=== PATIENT | female | born 1940 | race Caucasian/White ===

== ENCOUNTER 2018-10-30 12:02 | Emergency (ER) | payer MEDICARE, OTHER ==
[~2018-10-30] VITALS: Ht 160 cm; Wt 63.6 kg
[2018-10-30 13:10] LABS: BASOPHILS # (AUTO) 0.1 X10'3 (0-0.2); BASOPHILS % (AUTO) 0.9 % (0-1); EOSINOPHILS # (AUTO) 0.1 X10'3 (0-0.9); EOSINOPHILS % (AUTO) 1.4 % (0-6); HEMATOCRIT 44.1 % (35.0-45.0); HEMOGLOBIN 15.3 g/dl (12.0-16.0); LYMPHOCYTES # (AUTO) 2.1 X10'3 (1.1-4.8); LYMPHOCYTES % (AUTO) 25.8 % (21-51); MEAN CORPUSCULAR HEMOGLOBIN 31.9 PG (27.0-31.0); MEAN CORPUSCULAR HGB CONC 34.6 g/dL (33.0-36.5); MEAN CORPUSCULAR VOLUME 92.2 FL (78-98); MEAN PLATELET VOLUME 7.3 FL (7.4-10.4); MONOCYTES # (AUTO) 0.9 X10'3 (0-0.9); MONOCYTES % (AUTO) 11.3 % (2-12); NEUTROPHILS # (AUTO) 4.9 X10'3 (1.8-7.7); NEUTROPHILS % (AUTO) 60.6 % (42-75); PLATELET COUNT 392 X10'3 (140-440); RED BLOOD COUNT 4.79 X10'6 (4.20-5.60); RED CELL DISTRIBUTION WIDTH 13.9 % (11.5-14.5); WHITE BLOOD COUNT 8.1 X10'3 (4.5-11.0)
[2018-10-30 13:24] LABS: PARTIAL THROMBOPLASTIN TIME 27 SECONDS (22-32)
[2018-10-30 13:25] LABS: ALANINE AMINOTRANSFERASE 24 U/L (12-78); ALBUMIN 4.6 G/DL (3.4-5.0); ALBUMIN/GLOBULIN RATIO 1.5 (1.1-1.5); ALKALINE PHOSPHATASE 47 IU/L (46-116); ANION GAP 8 (8-16); ASPARTATE AMINO TRANSFERASE 20 U/L (10-37); BILIRUBIN,TOTAL 0.9 MG/DL (0.1-1.0); BLOOD UREA NITROGEN 10 MG/DL (7-18); BUN/CREATININE RATIO 13.7 (6.6-38.0); CALCIUM 9.4 MG/DL (8.5-10.1); CHLORIDE 87 MMOL/L (99-107); CREATININE 0.73 MG/DL (0.40-0.90); GLUCOSE 93 MG/DL (70-104); SODIUM 126 MMOL/L (135-145); TOTAL CARBON DIOXIDE 31.1 MMOL/L (24-32); TOTAL PROTEIN 7.6 G/DL (6.4-8.2); eGFR 77 ML/MIN
[2018-10-30 13:26] LABS: POTASSIUM 2.4 MMOL/L (3.5-5.1)
[2018-10-30] MEDS ORDERED: potassium Cl 20 mEq SR tablet PO ONE (13:35)
[2018-10-30] MEDS: magnesium 2GM in 50ml NS 50 ML IV SCH ×2 (13:54→15:29)
[2018-10-30] MEDS: potassium Cl 10 mEq/100mL bag IV SCH ×2 (14:00→15:29)
[2018-10-30 14:34] LABS: MAGNESIUM 2.3 MG/DL (1.5-2.4)
[2018-10-30 15:11] LABS: COLOR,URINE STRAW (Yellow); GLUCOSE, URINE NEGATIVE (Neg); KETONES,URINE NEGATIVE (Neg); LEUKOCYTE ESTERASE ,URINE TRACE (Neg); NITRITES, URINE NEGATIVE (Neg); OCCULT BLOOD,URINE NEGATIVE (Neg); PH,URINE 5.5 (4.8-8.0); PROTEIN,URINE NEGATIVE (Neg); UROBILINOGEN,URINE 0.2 E.U/dL (0.2-1.0)
[2018-10-30 15:13] LABS: CLARITY,URINE SLIGHTLY CLOUDY (Clear); UA COLLECTION TYPE CLN CATCH MIDSTREAM
[2018-10-30 15:24] LABS: SQUAMOUS EPITHELIAL CELL,UR FEW /LPF (FEW)
[2018-10-30 15:25] LABS: BACTERIA,URINE 2+ /HPF (Neg); RBC,URINE 0-2 /HPF (0-2); WBC,URINE 0-4 /HPF (0-4)
--- NOTE | 2018-10-30 16:59 | NUR ---
LAB AT BEDSIDE TO DRAW K AT THIS TIME.
[2018-10-30] MEDS ORDERED: POTA20TA19 PO (18:07)
[2018-10-30 18:27] VITALS: BP 138/89
--- NOTE | 2018-11-06 08:53 | NUR ---
URINE CULTURE RESULTS RECEIVED CALLED PATIENT AND PRESCRIPTION CALLED IN TO [facility] [address] AT PATIENT REQUEST.
== END 2018-10-30 18:28 | disposition home or self-care (01) ==
LOC: ER 12:02
DX: I44.7 Left bundle-branch block, unspecified (principal); R42 Dizziness and giddiness; E87.1 Hypo-osmolality and hyponatremia; E87.6 Hypokalemia; Z79.899 Other long term (current) drug therapy
CPT/HCPCS: 36415; 71045; 80053; 81001; 83735; 84132; 84439; 84443; 84484; 85025; 85610; 85730; 87077; 87088; 87186; 93005; 96365; 96366; 96368; 99284; J3475; J3480

== ENCOUNTER 2018-12-19 13:14 | Emergency (ER) | payer MEDICARE, OTHER ==
[~2018-12-19] VITALS: Ht 160 cm; Wt 59.0 kg
[2018-12-19 13:28] VITALS: BP 143/85
== END 2018-12-19 15:31 | disposition home or self-care (01) ==
LOC: ER 13:15
DX: H92.03 Otalgia, bilateral (principal); R42 Dizziness and giddiness
CPT/HCPCS: 99282

== ENCOUNTER 2025-01-19 12:17 | Inpatient (IN) | payer MEDICARE, OTHER ==
[~2025-01-19] VITALS: Ht 160 cm; Wt 53.1 kg
[~2025-01-19 12:17] MED LIST: APIX2.5T PO; DORZ10DR10 EACHEYE; EMPA10TA PO; HYDR-3972 PO; LEVO125T8 PO; METO-384 PO; SACU1TAB PO; SPIR25TA5 PO
[2025-01-19 13:26] LABS: MEAN PLATELET VOLUME 8.0 FL (7.4-10.4); RED CELL DISTRIBUTION WIDTH 14.9 % (11.5-14.5)
[2025-01-19 13:36] LABS: CREATININE 2.82 MG/DL (0.40-0.90); TOTAL CARBON DIOXIDE 19.4 MMOL/L (24-32); eCRCL 12 ML/MIN; eGFR 16 ML/MIN
--- NOTE | 2025-01-19 13:54 | RADIOLOGY REPORT ---
CHEST RADIOGRAPH Indication: ams Technique: Single frontal view of the chest was obtained Comparison: DI CHEST,SINGLE VIEW on DOS: 03/28/23, FINDINGS: The cardiac silhouette is enlarged. The lungs demonstrate perihilar airspace opacities. The pulmonary vasculature is prominent. There is no pleural effusion. There is no pneumothorax. Aortic atherosclerotic disease. IMPRESSION: Cardiomegaly with pulmonary vascular congestion and bilateral perihilar airspace opacities.
[2025-01-19 14:02] LABS: BANDS% (MANUAL) 17.0 % (0-10); LYMPHOCYTES % (MANUAL) 4.0 % (21-51); METAMYLEOCYTES% (MANUAL) 1.0 % (0-0); MONOCYTES % (MANUAL) 8.0 % (2-12); NEUTROPHILS % (MANUAL) 70.0 % (42-75); PLATELET ESTIMATE DECREASED
[2025-01-19] MEDS: normal saline 500ml IV soln 500 ML IV ONE ×3 (14:18→16:09)
[2025-01-19] MEDS: CefTRIAXone/D5W-Rocephin 1gm 50 ML IV ONE (14:51)
[2025-01-19 15:45] LABS: LEUKOCYTE ESTERASE ,URINE LARGE (Neg); NITRITES, URINE POSITIVE (Neg); OCCULT BLOOD,URINE MODERATE (Neg)
[2025-01-19 15:50] LABS: UA COLLECTION TYPE STRAIGHT CATH
[2025-01-19 15:51] LABS: MUCUS STRANDS NONE SEEN /LPF (Neg); SQUAMOUS EPITHELIAL CELL,UR NONE SEEN /LPF (FEW); WBC CLUMPS,URINE MANY /HPF (NEGATIVE)
--- NOTE | 2025-01-19 17:15 | Physician Documentation ---
History of Present Illness ~ Chief Complaint: ALOC Stated Complaint: ALOC Time Seen by MD: 12:52 Primary Medical Doctor: BHARATHI Mode of Arrival: EMS HPI 84 year old female with history of CHF and atrial fibrillation presented for altered mental status with family at bedside. She has no specific complaints but is poorly oriented. She reportedly has a history of hyponatremia. Medication Reconciliation Allergies: Coded Allergies: No Known Allergies (Unverified , 07/13/22) Scheduled Apixaban (Eliquis), 1 TAB PO Q12H, (Reported) Dorzolamide HCl/Timolol Maleat (Dorzolamide-Timolol Eye Drops), 1 DROP EACHEYE BID, (Reported) Empagliflozin (Jardiance), 1 TAB PO DAILY, (Reported) Levothyroxine Sodium (Levothyroxine Sodium), 125 MCG PO DAILY@0700 Metoprolol Succinate (Metoprolol Succinate), 1 TAB PO DAILY, (Reported) Sacubitril/Valsartan (Entresto 24 mg-26 mg Tablet), 1 TAB PO BID, (Reported) Spironolactone (Spironolactone), 25 MG PO DAILY, (Reported) Scheduled PRN Hydrocodone Bit/Acetaminophen (Hydrocodon-Acetaminophn 10-325 tablet), 1 TAB PO Q12H PRN for pain, (Reported) Past Medical History Past Medical History: Atrial Fibrillation, Congestive Heart Failure Past Surgical History: noncontributory Patient History: CVA MOTHER, Onset:60 years & older FH: cardiovascular disease GRANDFATHER OR GRANDMOTHER, Onset:60 years & older Smoking Status: Never smoker Alcohol Use: Heavy Drug Use: none Lives In: Home Review of Systems All Other Systems at this time: Reviewed and Negative Physical Exam Vital Signs: RN Vital Signs have been reviewed: Yes, Temperature: 97.3, Heart Rate: 108, Respiratory Rate: 22, BP: 102/68, Pulse Oximetry: 98, Weight: 55.000 Oxygen Flow Rate: 0 Physical Exam Gen: no distress HEENT: PERRL, EOMI Pulm: no distress CTAB CV: irregularly irregular tachycardia Abd: soft, nontender, nondistended MSK: no deformity Skin: w/d/i Neuro: nonfocal, poorly oriented Psych: unremarkable Progress Results/Orders Results/Orders Orders - TAYLOR SCOTT MD Chest,Single View (01/19/25 13:16) Culture Blood (01/19/25 14:12) Cult Urine + [place] [address] (01/19/25 15:51) Completed Orders - TAYLOR SCOTT MD Cbc/Diff (01/19/25 12:50) BMP (01/19/25 12:50) Chest,Single View (01/19/25 13:16) Normal Saline 500ml Iv Soln (Sodium Chlo (01/19/25 13:35) Man Diff (01/19/25 13:06) Ceftriaxone/Q9h-Ocquojtr 1gm (Rocephin 1 (01/19/25 14:15) Lacticsepsis (01/19/25 14:12) Ua W/Microscopic, Cult If Ind (01/19/25 14:50) Normal Saline 500ml Iv Soln (Sodium Chlo (01/19/25 16:05) Normal Saline 500ml Iv Soln (Sodium Chlo (01/19/25 16:05) Lactic,2hr (01/19/25 16:11) LA (01/19/25 18:30) Vital Signs 01/19/25 01/19/25 01/19/25 01/19/25 12:18 13:33 13:36 13:45 Temp 97.8 Pulse 70 101 105 Resp 18 18 18 B/P (MAP) 134/103 81/50 (60) 168/122 (137) Pulse Ox 91 94 95 O2 Flow Rate 6.0 3.0 1.5 01/19/25 01/19/25 01/19/25 01/19/25 14:00 14:15 14:28 14:45 Pulse 109 100 101 106 Resp 20 20 18 18 B/P (MAP) 91/47 (62) 73/48 (56) 93/65 (74) 102/73 (83) Pulse Ox 94 95 89 94 O2 Flow Rate 1.5 1.5 1.5 1.5 01/19/25 01/19/25 01/19/25 01/19/25 15:00 15:15 15:45 16:00 Pulse 104 107 102 95 Resp 18 18 B/P (MAP) 86/58 (67) 96/69 (78) 99/65 (76) 76/47 (57) Pulse Ox 94 95 99 99 O2 Flow Rate 1.5 1.5 1.5 1.5 01/19/25 01/19/25 01/19/25 16:03 16:10 16:50 Temp 97.3 Pulse 98 120 108 Resp 20 18 22 B/P (MAP) 48/30 (36) 86/59 (68) 102/68 (79) Pulse Ox 98 97 98 O2 Flow Rate 0 0 0 Laboratory Tests Test 01/19/25 13:06 01/19/25 14:25 01/19/25 14:50 01/19/25 16:23 White Blood Count 15.7 H Red Blood Count 3.66 L Hemoglobin 12.1 Hematocrit 35.6 Mean Corpuscular Volume 97.1 Mean Corpuscular Hemoglobin 33.0 H Mean Corpuscular Hemoglobin Concent 34.0 Red Cell Distribution Width 14.9 H Platelet Count 108 L Mean Platelet Volume 8.0 Neutrophils (%) (Auto) 86.0 H Lymphocytes (%) (Auto) 4.1 L Monocytes (%) (Auto) 9.7 Eosinophils (%) (Auto) 0.1 Basophils (%) (Auto) 0.1 Neutrophils # (Auto) 13.5 H Lymphocytes # (Auto) 0.7 L Monocytes # (Auto) 1.5 H Eosinophils # (Auto) 0.0 Basophils # (Auto) 0.0 CBC Comment Differential Total Cells Counted 100 Neutrophils % (Manual) 70.0 Band Neutrophils % 17.0 H Lymphocytes % (Manual) 4.0 L Monocytes % (Manual) 8.0 Metamyelocytes % 1.0 H Toxic Vacuolation 1+ Platelet Estimate Decreased Red Blood Cell Morphology Perf Basophilic Stippling Macrocytosis Few Richey Cells Few Sodium Level 129 L Potassium Level 3.7 Chloride Level 96 L Carbon Dioxide Level 19.4 L Anion Gap 14 Blood Urea Nitrogen 27 H Creatinine 2.82 H Estimated GFR/1.73 m2 16 BUN/Creatinine Ratio 9.6 L Glucose Level 93 Calcium Level 7.9 L Albumin 2.7 L Chemistry Comments Lactic Acid Level 4.9 *H 2.7 H Urine Specimen Description Straight cath Urine Color Brown Urine Clarity Turbid Urine pH 6.5 Urine Specific [place] 1.015 Urine Protein >=300 H Urine Glucose (UA) Negative Urine Ketones Negative Urine Occult Blood Moderate H Urine Nitrite Positive H Urine Bilirubin Small Urine Urobilinogen 0.2 Urine Leukocyte Esterase Large H Urine RBC Tntc Urine WBC Tntc H Urine WBC Clumps Many Urine Squamous Epithelial Cells None seen Urine Bacteria 4+ Urine Mucus None seen Urine Culture Indicated Indicated Volume Urine Centrifuged 10 ml Urine Comment Microbiology Date/Time Source Procedure Growth Status 01/19/25 15:51 Urine Straight Cath Urine Culture - Preliminary Culture received. Resulted 01/19/25 15:35 Blood Arm Right Blood Culture - Preliminary NEGATIVE (LESS THAN 24 HOURS) Resulted Medical Decision Making Additional information obtaine: N/A Findings 84 year old female with new onset altered mental status. Appearing tachycardic and hypotensive during workup which also demonstrated elevated WBC. CXR interpreted by me demonstrated normal contours, no PNA, no PTX. EKG interpreted by me demonstrated irregularly irregular tachycardia, atrial flutter, no STEMI criteria. Suspected UTI, sepsis with elevated lactate. IVF and antibiotics provided which resulted in improved vital signs. Care transferred to hospitalist. This patient required 60 minutes of critical care time apart from separately billable procedures for frequent reassessment, management of blood pressure and fluid resuscitation. Differential Dx:Considerations: Include: other Additional Information Ddx = sepsis, uti, pyelonephritis, dementia, pneumonia, intraabdominal infection, metabolic encephalopathy Departure Disposition: ADMITTED INPATIENT Admitted to Inpatient Unit: to hospitalist Admission Level of Care: Med/Surg Impression: Primary Impression: Sepsis Additional Impressions: Metabolic encephalopathy UTI (urinary tract infection) Condition: Stable Referrals: NO PRIMARY CARE PROVIDER (PCP) Education Educated: Patient, Family Educated regarding: diagnosis, treatment, prognosis, need for follow up Signature Scribe Signature: . Attestation: . TAYLOR SCOTT MD Jan 19, 2025 17:15
--- NOTE | 2025-01-19 17:38 | HISTORY AND PHYSICAL ---
History & Physical Providers to CC ~ History of Present Illness Reason for Admit\Complaint: Altered mental status History of Present Illness 84 years old female with a history of AFib and CHF, presented to the ER for evaluation of altered mental status . Patient is unable to provide any information which is provided by her daughter Audrey who is at the bedside. Daughter states she lives close by and got called by nephew that patient was not doing well ,was not eating or drinking and mostly staying in bed. Patient is evaluated in the ER and noted to have multiple abnormalities including a white count of 15.7, BUN and creatinine 27 and 2.82 and a sodium of 129. UA is abnormal suggestive of UTI. Patient has been admitted for metabolic encephalopathy and a UTI. Patient has not had any recent fever chills nausea vomiting abdominal pain chest pain dysuria frequency urgency hematuria melena or bright red blood per rectum. No focal neurological abnormalities are reported. Allergies: Coded Allergies: No Known Allergies (Unverified , 07/13/22) Home Medications Home Medications Active Levothyroxine Sodium 125 Mcg Tablet 125 Mcg PO DAILY@0700 Reported Spironolactone 25 Mg Tablet 25 Mg PO DAILY Jardiance (Empagliflozin) 10 Mg Tablet 1 Tab PO DAILY Entresto 24 mg-26 mg Tablet (Sacubitril/Valsartan) 1 Each Tablet 1 Tab PO BID Eliquis (Apixaban) 2.5 Mg Tablet 1 Tab PO Q12H 30 Days Dorzolamide-Timolol Eye Drops (Dorzolamide HCl/Timolol Maleat) 10 Ml Drops 1 Drop EACHEYE BID Metoprolol Succinate 50 Mg Tab.sr.24h 1 Tab PO DAILY Hydrocodon-Acetaminophn 10-325 tablet (Acetaminophen/Hydrocodone Bitart) 10mg- 325mg Tablet 1 Tab PO Q12H PRN Past Medical History Past Medical History AFib, CHF Past Surgical History Surgical History Comment No recent surgeries. Family History Family History: Family history was reviewed; no changes noted. Past Social History Social History Comment Per daughter, patient does not smoke, drinks 2-3 beers a day, does not do any drugs. Health Maintenance Health Maintenance Patient is not current on her immunizations ROS ROS Unobtainable Exam Vitals: Vital Signs Date Time Temp Pulse Resp B/P (MAP) Pulse Ox O2 Delivery O2 Flow Rate FiO2 01/19/25 16:50 108 22 102/68 (79) 98 0 01/19/25 16:10 97.3 General: Confused in no acute distress HEENT: Normocephalic, atraumatic, extraocular movements are intact, sclerae anicteric. Neck: Supple, no JVD, trachea midline, no lymphadenopathy. Chest: Clear to auscultation, no wheezes crackles or rhonchi. Cardiovascular: Regular rate rhythm, no murmur gallop or rub. Abdomen: Soft nontender, no organomegaly. Extremities: No cyanosis clubbing or edema. Central Nervous System: Nonfocal. Moves all four extremities Musculoskeletal: No joint swelling or deformities noted. Skin: No rash or ulcers noted. Diagnostic Data Last Recorded Lab Results: 01/19/25 1306 01/19/25 1306 Additional Plan 84 years old female presented to the ER for evaluation of altered mental status. # metabolic encephalopathy: Bedrest, fall precautions #UTI: Start on IV Rocephin await final cultures # sepsis source urine: Supportive care and IV hydration. # JUAN CARLOS: Start on IV hydration monitor daily. Hold spironolactone #chronic systolic dysfunction: Patient had an echocardiogram in 2022 which showed an EF of 25-30%. We will recheck echocardiogram . Continue Entresto and metoprolol. Hold spironolactone due to dehydration # history of AFib: Continue metoprolol and Eliquis # hypothyroidism: Continue levothyroxine #code status: Daughter states that patient has wanted to be a DNR. Date of Service: Jan 19, 2025 Billing Provider: BATOOL GORE MD Common Visit Codes: [id number] INP/OBS CARE (HIGH) BATOOL GORE MD Jan 19, 2025 17:38
[2025-01-19] MEDS ORDERED: potassium Cl 20 mEq SR tablet PO PRN (17:40)
[2025-01-19] MEDS: normal saline 1000ml 1,000 ML IV SCH (17:40)
[2025-01-19] MEDS ORDERED: magnesium sulf-water 4G/100mL 100 ML IV PRN (17:40)
--- NOTE | 2025-01-19 17:51 | ELECTROCARDIOGRAPH REPORT ---
[facility] Test Date: 2025-01-19 Test Time: 12:26:02 Pat Name: VAHID HOWELL Department: EMERGENCY ROOM Room: ED 3 Gender: F Glove Turner: ALIE : 1940 Requested By: DEPARTMENT EMERGENCY Order Number: [id number] Reading MD: Dr. Mo Albarran Measurements Intervals [place] Rate: 104 P: 0 [place]: 0 QRS: 134 QRSD: 140 T: -40 QT: 383 QTc: 504 Interpretive Statements Age not entered, assumed to be 49 years old for purpose of ECG interpretation Atrial flutter with predominant 2:1 AV block Left bundle branch block Electronically Signed On 01-19-2025 18:10:[address] Mo Albarran Please click the below link to view image of tracing.
[2025-01-19] MEDS: PERFLUTREN PROTEIN-A MICROSPHR (Optison) 0.22 MG/ML 3ML VIAL IV ONE (17:57)
[2025-01-19] MEDS: docusate sod 100mg capsule PO SCH (20:00)
[2025-01-19] MEDS: K and/or MAG REPLACEMENT MC SCH (20:04)
[2025-01-19 21:00] VITALS: BP 89/60; PULSE 103; RESP 22; O2SAT 98
[2025-01-19 22:00] VITALS: BP 93/53; PULSE 116; RESP 30; O2SAT 96
[2025-01-19 22:19] VITALS: RESP 27; O2SAT 95
[2025-01-19 23:00] VITALS: BP 97/64; PULSE 101; RESP 24; O2SAT 100
[2025-01-19] MEDS: ondansetron/PF 4mg/2ml inj IV PRN (23:21)
[2025-01-19] MEDS: digoxin 250mcg/ml 2ml ampule IV ONE (23:28)
[2025-01-20] VITALS (16 sets, daily range): BP systolic 90–145; BP diastolic 47–83; PULSE 61–98; RESP 14–24; TEMP 97.8–98; O2SAT 87–100
[2025-01-20 00:26] LABS: MEAN PLATELET VOLUME 8.5 FL (7.4-10.4); RED CELL DISTRIBUTION WIDTH 15.1 % (11.5-14.5)
[2025-01-20 00:39] LABS: CREATININE 2.84 MG/DL (0.40-0.90); TOTAL CARBON DIOXIDE 21.9 MMOL/L (24-32); eCRCL 12 ML/MIN; eGFR 16 ML/MIN
[2025-01-20 00:53] LABS: BANDS% (MANUAL) 10.0 % (0-10); LYMPHOCYTES % (MANUAL) 4.0 % (21-51); METAMYLEOCYTES% (MANUAL) 1.0 % (0-0); MONOCYTES % (MANUAL) 6.0 % (2-12); NEUTROPHILS % (MANUAL) 79.0 % (42-75); PLATELET ESTIMATE DECREASED
[2025-01-20] MEDS: potassium Cl 40MEQ/1/2NS 520ml 520 ML IV PRN (02:07)
[2025-01-20] MEDS: dextrose 50%-water 50ml dispensing syringe IV ONE (04:47)
[2025-01-20] MEDS ORDERED: digoxin 250mcg/ml 2ml ampule IV ONE ×2 (05:00→11:00)
[2025-01-20] MEDS ORDERED: DEXTROSE 15 GM of carb/4 tabs (each vial/BOTTLE has 4 tablets) PO PRN (05:20)
[2025-01-20] MEDS ORDERED: glucagon, human recombinant 1mg kit SUBCUT PRN (05:20)
[2025-01-20] MEDS: digoxin 250mcg/ml 2ml ampule IV SCH (05:56)
[2025-01-20] MEDS: magnesium sulf-water 2g/50mL 50 ML IV PRN (08:46)
[2025-01-20] MEDS: CefTRIAXone/D5W-Rocephin 1gm 50 ML IV SCH (08:46)
[2025-01-20] MEDS: magnesium Cl slow-release 64mg tablet PO PRN (09:32)
[2025-01-20] MEDS: dextrose 50%-water 50ml dispensing syringe IV PRN (10:00)
[2025-01-20 10:38] LABS: C DIFF ANTIGEN NEGATIVE (NEGATIVE); C DIFF SPECIMEN=DIARRHEA? ACCEPTABLE
--- NOTE | 2025-01-20 11:13 | ELECTROCARDIOGRAPH REPORT ---
[facility] Test Date: 2025-01-19 Test Time: 17:55:31 Pat Name: VAHID HOWELL Department: EMERGENCY ROOM Room: ORTHO 4023 Gender: F Plastic Surgery Assistant: KINSGLEY : 1940 Requested By: DEPARTMENT EMERGENCY Order Number: [id number] Reading MD: Dr. Mo Albarran Measurements Intervals [place] Rate: 107 P: 0 [place]: 0 QRS: -47 QRSD: 144 T: 155 QT: 337 QTc: 450 Interpretive Statements Atrial flutter/fibrillation Nonspecific IVCD with LAD LVH with secondary repolarization abnormality Anterior infarct, old Electronically Signed On 01-20-2025 18:30:[address] Mo Albarran Please click the below link to view image of tracing.
[2025-01-20] MEDS ORDERED: SODI1TAB2 PO (13:16)
[2025-01-20] MEDS ORDERED: FURO-150 PO (13:16)
[2025-01-20] MEDS ORDERED: SYN0.088T PO (13:16)
[2025-01-20] MEDS ORDERED: POTA-207 PO (13:16)
[2025-01-20] MEDS: potassium Cl 20 mEq SR tablet PO PRN (15:57)
[2025-01-20 16:02] LABS: C DIFFICILE TOXINS A&B NEGATIVE (Neg)
--- NOTE | 2025-01-20 16:08 | PROGRESS NOTE ---
Daily Progress Note Providers to CC ~ Antibiotic Timeout Antibiotic Ordered?: Yes Subjective Patient is more awake. Daughter at bedside. Objective Vital Signs Date Time Temp Pulse Resp B/P (MAP) Pulse Ox O2 Delivery O2 Flow Rate FiO2 01/20/25 13:30 18 99 Nasal Cannula 4.0 01/20/25 13:20 97.9 61 126/59 (81) Result Diagram: 01/20/25 0010 01/20/25 0010 Awake cooperative in no acute distress HEENT normocephalic atraumatic extraocular movements are intact Neck supple, no JVD Chest: Clear to auscultation, no wheezes crackles rhonchi Heart: Regular rate rhythm, no murmur or gallop rub Abdomen is soft, tender, no organomegaly Extremities no cyanosis clubbing or edema Neuro exam is nonfocal. Other Results Medications reviewed Problem\Assessment\Plan 84 years old female with a history of AFib and CHF, presented to the ER for evaluation of altered mental status. # sepsis: Continue supportive care # UTI: Continue IV antibiotics # diarrhea: Patient has a rectal tube. Abdomen is quite tender. We will check CT abdomen and pelvis . Added Flagyl IV. # cardiomegaly: Check echocardiogram. Patient has a history of CHF. Lasix as needed # bilateral perihilar airspace opacities:? Pneumonia. Patient is on antibiotics as noted above. # code status: DNR. Date of Service: Jan 20, 2025 Billing Provider: BATOOL GORE MD Common Visit Codes: [id number] INP/OBS CARE(HIGH) BATOOL GORE MD Jan 20, 2025 16:08
[2025-01-20] MEDS: metroNIDAZOLE-Flagyl 500mg/NS 100 ML IV SCH (16:27)
--- NOTE | 2025-01-20 17:02 | RADIOLOGY REPORT ---
EXAM: CT CT ABDOMEN PELVIS HISTORY: abdominal pain Comparison Study: None Exam Date: 01/20/2025 04:30 PM Radiation Dose Information: CT Dose: CTDI volume is 23 mGy. Dose-length product is 1137 mGy*cm Technique: Multidetector CT of the abdomen and pelvis was performed. Imaging was performed without IV contrast. Axial, coronal and sagittal multiplanar reformats were obtained from the axial data set by the technologist. Findings: Motion degraded study. Lack of intravenous contrast compromises evaluation of perfusion and for isodense lesions. Lower chest: Trace bilateral pleural effusions. Liver: Unremarkable Biliary system: Unremarkable Spleen: Unremarkable Pancreas: Unremarkable. Adrenals: Unremarkable. Kidneys and ureters: Mild left collecting system dilatation most pronounced at the renal pelvis with underlying cortical atrophy. No obstructing calculus. Bowel: No obstruction. Rectal tube in place. Bladder: Unremarkable Reproductive organs: Myomatous uterus. Lymph nodes: Unremarkable. Peritoneum: Unremarkable Vessels: Patency not evaluated on this noncontrast study. Bones and soft tissue: No aggressive osseous lesion. Postsurgical changes in the lumbar spine. Moderate T12 compression fracture, which appears recent. IMPRESSION: Severely motion degraded limited study. Moderate T12 compression fracture, which appears recent. Mild left collecting system dilatation with underlying cortical atrophy. No obstructing calculus. 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 Recommend CT urogram to assess for other possible etiologies of obstruction including mass.
--- NOTE | 2025-01-20 17:39 | CARDIOLOGY REPORT ---
APPROVED REPORT EXAM: Comprehensive 2D, Doppler, and color-flow Echocardiogram. 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 148.9 cm/s AoV VTI 14.6 cm AO Peak GR. 8.9 mmHg AO Mean GR. 5 mmHg LVOT VTI 9.92 cm LVOT Peak Duran. 64.8 cm/s LUIS(VTI)/BSA 1.92 cm2/m2 LUIS (VTI) 1.92 cm2 AI P 1/2 Time 492 ms AV DI 0.68 % Mitral Valve MV E Velocity 99.3 cm/s MV Peak Gr. 5 mmHg MV PHT 68 ms MVA (PHT) 3.24 cm2 MV VMax 106.6 cm/s Tricuspid Valve TR P. Velocity 239 cm/s RAP ESTIMATE 5 mmHg TR Peak Gr. 23 mmHg RVSP 28 mmHg LEFT VENTRICLE Normal LV size moderately reduced function. Mild concentric hypertrophy. LVEF is 35-40%. RIGHT VENTRICLE Right ventricle is mildly dilated. The right ventricular systolic function is normal. RVSP is 28 mmHg. ATRIA Left atrium is moderately dilated. The right atrium size is normal. AORTIC VALVE Trileaflet AV appears mildly sclerotic without stenosis. Mild insufficiency. MITRAL VALVE Mild mitral annular calcification without stenosis. Mild regurgitation. TRICUSPID VALVE TV appears structurally normal with mild regurgitation. PULMONIC VALVE Pulmonic valve is not well visualized. GREAT VESSELS The aortic root is normal in size. The ascending aorta is normal in size. PERICARDIUM Normal pericardium. No effusion. Other Information Study Quality: Adequate Conclusion Normal LV size moderately reduced function. Mild concentric hypertrophy. LVEF is 35-40%. Right ventricle is mildly dilated. The right ventricular systolic function is normal. RVSP is 28 mmHg. Left atrium is moderately dilated. Trileaflet AV appears mildly sclerotic without stenosis. Mild insufficiency. Mild mitral annular calcification without stenosis. Mild regurgitation. TV appears structurally normal with mild regurgitation. Normal pericardium. No effusion.
[2025-01-21 06:00] VITALS: BP 152/62; PULSE 63; RESP 12; TEMP 97.6; O2SAT 97
[2025-01-21 06:18] LABS: MEAN PLATELET VOLUME 9.1 FL (7.4-10.4); RED CELL DISTRIBUTION WIDTH 15.4 % (11.5-14.5)
[2025-01-21 06:35] LABS: CREATININE 2.71 MG/DL (0.40-0.90); TOTAL CARBON DIOXIDE 16.2 MMOL/L (24-32); eCRCL 13 ML/MIN; eGFR 17 ML/MIN
[2025-01-21 10:00] VITALS: BP 144/84; PULSE 85; RESP 20; TEMP 98.6; O2SAT 100
--- NOTE | 2025-01-21 10:11 | PROGRESS NOTE ---
Daily Progress Note Providers to CC ~ Antibiotic Timeout Antibiotic Ordered?: Yes Subjective Daughter at bedside, reports patient is feeling better. Objective Vital Signs Date Time Temp Pulse Resp B/P (MAP) Pulse Ox O2 Delivery O2 Flow Rate FiO2 01/21/25 06:00 81 01/21/25 06:00 97.6 12 152/62 (92) 97 Nasal Cannula 3.5 Result Diagram: 01/21/2542201/21/25 042 Awake cooperative in no acute distress HEENT normocephalic atraumatic extraocular movements are intact Neck supple, no JVD Chest: Clear to auscultation, no wheezes crackles rhonchi Heart: Regular rate rhythm, no murmur or gallop rub Abdomen is soft, tender, no organomegaly Extremities no cyanosis clubbing or edema Neuro exam is nonfocal. Rectal tube noted with liquid green stool. Other Results Medications reviewed Problem\Assessment\Plan 84 years old female with a history of AFib and CHF, presented to the ER for evaluation of altered mental status. # Gram-negative sepsis: Continue supportive care # UTI: Continue IV antibiotics #Huber/CKD: Continue IV fluids. Monitor I's and o's. Request Nephrology consultation. 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 # diarrhea: Patient has a rectal tube. Continue Rocephin and Flagyl. # Systolic CHF with out exacerbation : Lasix is on hold due to Huber/CKD. Await Nephrology recommendations. # bilateral perihilar airspace opacities:? Pneumonia. Patient is on antibiotics as noted above. # hyponatremia: Monitor daily BMP. # code status: DNR. Date of Service: Jan 21, 2025 Billing Provider: BATOOL GORE MD Common Visit Codes: [id number] INP/OBS CARE(HIGH) BATOOL GORE MD Jan 21, 2025 10:11
[2025-01-21] MEDS: LidoCAINE 2% Topical Jelly 11mL syringe (UROJET) TOP ONE (12:25)
[2025-01-21] MEDS: normal saline 1000ml 1,000 ML IV SCH (14:33)
--- NOTE | 2025-01-21 14:56 | CONSULTATION REPORT ---
Consult Providers to CC ~ History of Present Illness Reason for Admit\Complaint: Altered Mentation History of Present Illness This is an 84-year-old female with a history of atrial fibrillation, chronic systolic heart failure (EF 25-30%), and multiple comorbidities, presenting with acute altered mental status in the context of poor oral intake, functional decline, and recent bedbound status. She was found to have metabolic encephalopathy, acute kidney injury (JUAN CARLOS) on chronic kidney disease, urinary tract infection (UTI), and evidence of volume overload with pulmonary congestion. Her labs reveal leukocytosis, worsening renal function, hyponatremia, metabolic acidosis, hypoalbuminemia, hypocalcemia, and hypomagnesemia. Imaging shows chronic cardiac and renal changes, with new left collecting system dilatation but no obstruction, and a significant post-void residual requiring Reyes catheterization. Her medication regimen includes agents with potential nephrotoxicity and risk for electrolyte disturbances. She is at high risk for delirium, decompensated heart failure, and further renal deterioration, compounded by her advanced age, frailty, and social isolation. Allergies: Coded Allergies: No Known Allergies (Unverified , 07/13/22) Home Medications Home Medications Active Reported SODIUM CHLORIDE tablet (Sodium Chloride) 1,000 Mg Tablet 1 Tab PO QID 30 Days K-Dur* (Potassium Chloride) 20 Meq Tab.prt.sr 1 Tab PO DAILY 30 Days Lasix* (Furosemide) 20 Mg Tablet 1 Tab PO BID Synthroid* (Levothyroxine Sodium) 88 Mcg Tablet 1 Tab PO DAILY 30 Days Spironolactone 25 Mg Tablet 25 Mg PO DAILY Entresto 24 mg-26 mg Tablet (Sacubitril/Valsartan) 1 Each Tablet 1 Tab PO BID Eliquis (Apixaban) 2.5 Mg Tablet 1 Tab PO Q12H 30 Days Dorzolamide-Timolol Eye Drops (Dorzolamide HCl/Timolol Maleat) 10 Ml Drops 1 Drop EACHEYE BID Metoprolol Succinate 50 Mg Tab.sr.24h 1 Tab PO DAILY Past Medical History Past Medical History Reviewed Past Surgical History Surgical History Comment Reviewed Family History Family History: CVA MOTHER, Onset:60 years & older FH: cardiovascular disease GRANDFATHER OR GRANDMOTHER, Onset:60 years & older ROS ROS Unable to assess Exam Vitals: Vital Signs Date Time Temp Pulse Resp B/P (MAP) Pulse Ox O2 Delivery O2 Flow Rate FiO2 01/21/25 06:00 81 01/21/25 06:00 97.6 12 152/62 (92) 97 Nasal Cannula 3.5 Alert, confused RRR w/o murmur Decreased BS bases, some faint crackles +BS, NT 1+ edema Diagnostic Data Last Recorded Lab Results: 01/21/25 0423 01/21/25 0423 Diagnostic Data: I & O 01/21/25 07:00 Intake Total 820 ml Balance 820 ml Intake Oral 820 ml # Voids 1 Problems: (1) Electrolyte abnormality Assessment & Plan: Electrolyte Abnormalities Assessment: Hyponatremia, hypocalcemia, hypomagnesemia, metabolic acidosis. Plan: Correct electrolytes as indicated: replace magnesium and calcium, monitor sodium correction rate. Monitor for symptoms of severe electrolyte disturbances (seizures, arrhythmias). Address underlying causes (renal dysfunction, medications, poor intake). 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 Plan: Consult nutrition for assessment and recommendations. Encourage oral intake as tolerated; consider supplements. Monitor for refeeding syndrome if nutritional status improves rapidly. Functional Decline / Fall Risk / Social Isolation Assessment: Bedbound, acute functional decline, lives alone, high risk for falls and further deconditioning. Plan: Physical and occupational therapy consults for mobility and safety assessment. Social work/case management for discharge planning and possible increased support at home or consideration of higher level of care. Fall precautions in hospital. (3) Metabolic encephalopathy Status: Acute Assessment & Plan: Metabolic Encephalopathy / Delirium Assessment: Acute mental status change likely multifactorial: infection (UTI), metabolic derangements (uremia, hyponatremia, hypovolemia), medication effects, and possible alcohol withdrawal. Plan: Treat underlying causes: continue antibiotics for UTI, correct metabolic/electrolyte abnormalities. Monitor mental status closely; implement delirium precautions (reorienting, minimize restraints, optimize sleep/wake cycle). Review and minimize ENTERPRISE INTEGRATION ARCHITECT-active medications (hydrocodone/acetaminophen). Assess for alcohol withdrawal; consider CIWA protocol if indicated. (4) UTI (urinary tract infection) Status: Acute Assessment & Plan: Urinary Tract Infection Assessment: UTI with leukocytosis, likely contributing to delirium and JUAN CARLOS. Plan: Continue/adjust empiric antibiotics per culture and sensitivity. Monitor for sepsis; trend WBC, vitals, and clinical status. Reyes catheter in place for retention; reassess need daily and remove as soon as feasible. (5) JUAN CARLOS (acute kidney injury) Assessment & Plan: Acute Kidney Injury on Chronic Kidney Disease Assessment: JUAN CARLOS (creatinine 2.82 ? 2.71, BUN rising) on baseline CKD, likely multifactorial: pre-renal (dehydration, poor intake), infection, possible nephrotoxic medications, and urinary retention. Plan: Optimize volume status: cautious diuresis today Furosemide 40 mg IV. Hold/adjust nephrotoxic medications (spironolactone, Jardiance, and possibly Entresto if hypotensive or hyperkalemic). Monitor renal function and electrolytes daily. Address urinary retention; monitor Reyes output and consider urology consult for collecting system dilatation. Urinary Retention / Reyes Catheter Assessment: Significant post-void residual (567 mL), Reyes catheter placed, left collecting system dilatation without obstruction. Plan: Monitor Reyes output and urine characteristics. Reassess need for catheter daily; remove as soon as possible to reduce infection risk. Consider urology consult for persistent retention or abnormal imaging findings. CHELO POLANCO III DO Jan 21, 2025 14:56
[2025-01-21 15:00] VITALS: BP 176/89; PULSE 81; RESP 16; O2SAT 98
[2025-01-21 16:17] VITALS: BP 141/43; PULSE 83
[2025-01-21] MEDS ORDERED: hydrocortisone 1% cream 28gm TP PRN (17:20)
[2025-01-21 18:31] VITALS: BP 141/43; PULSE 83; RESP 18; TEMP 97.8; O2SAT 98
[2025-01-21 23:07] VITALS: BP 154/81; PULSE 85; RESP 12; TEMP 97.8; O2SAT 98
[2025-01-22] VITALS (11 sets, daily range): BP systolic 112–135; BP diastolic 60–89; PULSE 79–168; RESP 15–21; TEMP 96.4–97.9; O2SAT 94–100
[2025-01-22 06:08] LABS: RED CELL DISTRIBUTION WIDTH 15.4 % (11.5-14.5)
[2025-01-22 06:10] LABS: MEAN PLATELET VOLUME 9.2 FL (7.4-10.4)
[2025-01-22 06:11] LABS: CREATININE 2.51 MG/DL (0.40-0.90); TOTAL CARBON DIOXIDE 18.4 MMOL/L (24-32); eCRCL 14 ML/MIN; eGFR 18 ML/MIN
[2025-01-22] MEDS: dextrose 50%-water 50ml dispensing syringe IV PRN (08:07)
[2025-01-22] MEDS: potassium Cl 20 mEq SR tablet PO SCH (08:08)
[2025-01-22] MEDS: metoprolol succinate 25mg (24-HOUR) SR. Tablet PO SCH (08:08)
[2025-01-22] MEDS: levoTHYROXINE 88mcg tablet PO SCH (08:09)
[2025-01-22 09:36] LABS: BANDS% (MANUAL) 2.0 % (0-10); EOSINOPHILS % (MANUAL) 2.0 % (0-6); LYMPHOCYTES % (MANUAL) 5.0 % (21-51); MONOCYTES % (MANUAL) 5.0 % (2-12); NEUTROPHILS % (MANUAL) 86.0 % (42-75); PLATELET ESTIMATE DECREASED
--- NOTE | 2025-01-22 12:03 | CONSULTATION REPORT ---
History of Present Illness Providers to CC CC: NUBIA ANTONIO MD ~ Reason for Admit\Admit Dx: Cardiology consultation Refering MD: BHARATHI History of Present Illness Patient presented secondary to altered level of consciousness. She was at home and not acting herself. Family brought her in. They stated she was not waking up, acting appropriately and had severe weakness. Her symptoms have improved. Was found to have urinary tract infection with E coli bacteremia on one of her two blood cultures. She has known atrial fibrillation. She had not received her home metoprolol for several days and did go into RVR requiring transfer to the progressive care unit. Patient has no complaints of shortness for breath currently. Allergies: Coded Allergies: No Known Allergies (Unverified , 07/13/22) Home Medications Home Medications Active Reported SODIUM CHLORIDE tablet (Sodium Chloride) 1,000 Mg Tablet 1 Tab PO QID 30 Days K-Dur* (Potassium Chloride) 20 Meq Tab.prt.sr 1 Tab PO DAILY 30 Days Lasix* (Furosemide) 20 Mg Tablet 1 Tab PO BID Synthroid* (Levothyroxine Sodium) 88 Mcg Tablet 1 Tab PO DAILY 30 Days Spironolactone 25 Mg Tablet 25 Mg PO DAILY Entresto 24 mg-26 mg Tablet (Sacubitril/Valsartan) 1 Each Tablet 1 Tab PO BID Eliquis (Apixaban) 2.5 Mg Tablet 1 Tab PO Q12H 30 Days Dorzolamide-Timolol Eye Drops (Dorzolamide HCl/Timolol Maleat) 10 Ml Drops 1 Drop EACHEYE BID Metoprolol Succinate 50 Mg Tab.sr.24h 1 Tab PO DAILY Past Medical History Medical History Comment HFrEF Hypertension Atrial fibrillation Hyperlipidemia Glaucoma ? Baseline dementia Past Family History Family History: CVA MOTHER, Onset:60 years & older FH: cardiovascular disease GRANDFATHER OR GRANDMOTHER, Onset:60 years & older Past Social History Social History Comment Provider patient drinks beer daily. Nonsmoker. Physical Exam Last Vital Signs Recorded: RN Vital Signs have been reviewed: Yes, Temperature: 97.2, Source: Oral, Heart Rate: 84, Respiratory Rate: 15, BP: 117/78, Pulse Oximetry: 100, Weight: 53.100 Physical Exam General: Awake, alert, oriented. No apparent distress Respiratory: Lungs are clear to auscultation bilaterally. No respiratory distress. Chest: Normal shape and size. No accessory muscle use. Cardiovascular: Irregularly irregular. Rate controlled. S1-S2. No murmur, gallop, rub. Gastrointestinal: She has a rectal tube with diarrhea. Abdominal tenderness. Extremities: No lower extremity edema, cyanosis or clubbing. Neurologic: Alert and oriented x4. Nonfocal Psychiatric: Normal mood and affect. Skin: Normal color. Warm and dry. Review of Systems ROS Review of systems negative except documented in HPI Results Echocardiogram Echocardiogram Conclusion Normal LV size moderately reduced function. Mild concentric hypertrophy. LVEF is 35-40%. Right ventricle is mildly dilated. The right ventricular systolic function is normal. RVSP is 28 mmHg. Left atrium is moderately dilated. Trileaflet AV appears mildly sclerotic without stenosis. Mild insufficiency. Mild mitral annular calcification without stenosis. Mild regurgitation. TV appears structurally normal with mild regurgitation. Normal pericardium. No effusion. Dictated by:STARR ANSARI MD Dictation date and time:01/20/251738 Electronically Signed by: STARR ANSARI MD Date and Time: 01/20/251738 Diagram Lab Result Diagram: 01/22/2553001/22/25530 Assessment/Plan Additional Plan Patient presents secondary to altered level of consciousness/mental status. She had episode of atrial fibrillation with rapid ventricular response requiring transfer from the ortho neuro floor of the progressive care unit. The following is her problem list: Atrial fibrillation with rapid ventricular response Now rate controlled --continue home metoprolol --continue Eliquis as prescribed Heart failure with reduced ejection fraction Likely chronic. Appears well compensated. Given acute kidney injury I will stop spironolactone. We will hold Lasix. --recommend monitoring Acute kidney injury --hold diuretics as noted above --nephrology following E coli UTI --management per hospitalist Hypokalemia --replacement per protocol Hypothyroidism TSH 20.43 --on Synthroid. Unclear if she has been taking her medications as prescribed Case discussed with Dr. Zhang Antonio who is in agreement with this plan. Supervising MD Supervising Physician: DL Haro NP Jan 22, 2025 12:03
[2025-01-22] MEDS: Ensure Enlive - 237ML PO SCH (13:17)
[2025-01-22] MEDS ORDERED: levoTHYROXINE 88mcg tablet PO SCH (15:15)
--- NOTE | 2025-01-22 15:16 | PROGRESS NOTE ---
Daily Progress Note Providers to CC ~ Antibiotic Timeout Antibiotic Ordered?: Yes Subjective No new complaints, Objective Vital Signs Date Time Temp Pulse Resp B/P (MAP) Pulse Ox O2 Delivery O2 Flow Rate FiO2 01/22/25 10:50 97.2 84 15 117/78 (91) 100 Nasal Cannula 2.0 Result Diagram: 01/22/25 0531 01/22/25 0531 Awake cooperative in no acute distress HEENT normocephalic atraumatic extraocular movements are intact Neck supple, no JVD Chest: Clear to auscultation, no wheezes crackles rhonchi Heart: Regular rate rhythm, no murmur or gallop rub Abdomen is soft, tender, no organomegaly Extremities no cyanosis clubbing or edema Neuro exam is nonfocal. Rectal tube noted with liquid green stool. Other Results Medications reviewed Problem\Assessment\Plan 84 years old female with a history of AFib and CHF, presented to the ER for evaluation of altered mental status. # E coli sepsis: Continue supportive care # UTI: Continue IV antibiotics . Urine cultures positive for E coli. #Huber/CKD: Continue IV fluids. Monitor I's and o's. Request Nephrology consultation. 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 # diarrhea: Patient has a rectal tube. Continue Rocephin and Flagyl. # Systolic CHF with out exacerbation : Lasix is on hold due to Huber/CKD. Await Nephrology recommendations. # bilateral perihilar airspace opacities:? Pneumonia. Patient is on antibiotics as noted above. # hyponatremia: Monitor daily BMP. # hypothyroidism: TSH is 20.43. Patient is on levothyroxine 88 mcg daily which will be increased to 100 mcg. Continue monitor. # code status: DNR. Date of Service: Jan 22, 2025 Billing Provider: BATOOL GORE MD Common Visit Codes: [id number] INP/OBS CARE(HIGH) BATOOL GORE MD Jan 22, 2025 15:16
[2025-01-22] MEDS: DICLOFENAC SODIUM 1% gel 1 50GM tube TP SCH (17:09)
--- NOTE | 2025-01-22 17:39 | PROGRESS NOTE ---
Progress Note Dictate Providers to CC ~ Progress Note: This is an 84-year-old female with a history of atrial fibrillation, chronic systolic heart failure (EF 25-30%), and multiple comorbidities, presenting with acute altered mental status in the context of poor oral intake, functional decline, and recent bedbound status. She was found to have metabolic encephalopathy, acute kidney injury (JUAN CARLOS) on chronic kidney disease, urinary tract infection (UTI), and evidence of volume overload with pulmonary congestion. Her labs reveal leukocytosis, worsening renal function, hyponatremia, metabolic acidosis, hypoalbuminemia, hypocalcemia, and hypomagnesemia. Imaging shows chronic cardiac and renal changes, with new left collecting system dilatation but no obstruction, and a significant post-void residual requiring Reyes catheterization. Her medication regimen includes agents with potential nephrotoxicity and risk for electrolyte disturbances. She is at high risk for delirium, decompensated heart failure, and further renal deterioration, compounded by her advanced age, frailty, and social isolation. Antibiotic Ordered?: N/A Subjective Subjective Family present at bedside, she appears less confused today, improving renal function Objective Vitals Vital Signs Date Time Temp Pulse Resp B/P (MAP) Pulse Ox O2 Delivery O2 Flow Rate FiO2 01/22/25 15:00 97.2 81 19 112/65 (81) 96 Room Air 01/22/25 10:50 2.0 Lab Results: 01/22/25 0531 01/22/25 0531 Problem\Assessment\Plan Problems/Diagnosis: (1) Electrolyte abnormality Assessment & Plan: Electrolyte Abnormalities Assessment: Hyponatremia, hypocalcemia, hypomagnesemia, metabolic acidosis. Plan: Correct electrolytes as indicated: replace magnesium and calcium, monitor sodium correction rate. Monitor for symptoms of severe electrolyte disturbances (seizures, arrhythmias). Address underlying causes (renal dysfunction, medications, poor intake). 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 Plan: Consult nutrition for assessment and recommendations. Encourage oral intake as tolerated; consider supplements. Monitor for refeeding syndrome if nutritional status improves rapidly. Functional Decline / Fall Risk / Social Isolation Assessment: Bedbound, acute functional decline, lives alone, high risk for falls and further deconditioning. Plan: Physical and occupational therapy consults for mobility and safety assessment. Social work/case management for discharge planning and possible increased support at home or consideration of higher level of care. Fall precautions in hospital. (3) Metabolic encephalopathy Assessment & Plan: Metabolic Encephalopathy / Delirium improved Assessment: Acute mental status change likely multifactorial: infection (UTI), metabolic derangements (uremia, hyponatremia, hypovolemia), medication effects, and possible alcohol withdrawal. Plan: Treat underlying causes: continue antibiotics for UTI, correct metabolic/electrolyte abnormalities. Monitor mental status closely; implement delirium precautions (reorienting, minimize restraints, optimize sleep/wake cycle). Review and minimize SALES ENGINEER ACCOUNT MANAGER-active medications (hydrocodone/acetaminophen). Assess for alcohol withdrawal; consider CIWA protocol if indicated. (4) UTI (urinary tract infection) Assessment & Plan: Urinary Tract Infection Assessment: UTI with leukocytosis, likely contributing to delirium and JUAN CARLOS. Plan: Continue/adjust empiric antibiotics per culture and sensitivity. Monitor for sepsis; trend WBC, vitals, and clinical status. Reyes catheter in place for retention; reassess need daily and remove as soon as feasible. (5) JUAN CARLOS (acute kidney injury) Assessment & Plan: Acute Kidney Injury on Chronic Kidney Disease improving Assessment: JUAN CARLOS (creatinine 2.82 now 2.51, BUN rising) on baseline CKD, likely multifactorial: pre-renal (dehydration, poor intake), infection, possible nephrotoxic medications, and urinary retention. Plan: Optimize volume status: cautious diuresis today Furosemide 40 mg IV. Hold/adjust nephrotoxic medications (spironolactone, Jardiance, and possibly Entresto if hypotensive or hyperkalemic). Monitor renal function and electrolytes daily. Address urinary retention; monitor Reyes output and consider urology consult for collecting system dilatation. Urinary Retention / Reyes Catheter Assessment: Significant post-void residual (567 mL), Reyes catheter placed, left collecting system dilatation without obstruction. Plan: Monitor Reyes output and urine characteristics. Reassess need for catheter daily; remove as soon as possible to reduce infection risk. Consider urology consult for persistent retention or abnormal imaging findings. CHELO POLANCO III DO Jan 22, 2025 17:39
[2025-01-22] MEDS: dorzolamide/timolol (Cosopt) ophthalmic drops 10ml bottle EACHEYE SCH (20:19)
[2025-01-22] MEDS: sacubitril/valsartan 24mg-26mg tablet PO SCH (20:19)
[2025-01-23] VITALS (9 sets, daily range): BP systolic 98–131; BP diastolic 67–83; PULSE 68–73; RESP 14–19; TEMP 97.1–97.4; O2SAT 94–100
[2025-01-23 07:07] LABS: MEAN PLATELET VOLUME 9.6 FL (7.4-10.4); RED CELL DISTRIBUTION WIDTH 15.8 % (11.5-14.5)
[2025-01-23 07:48] LABS: CREATININE 2.19 MG/DL (0.40-0.90); TOTAL CARBON DIOXIDE 19.1 MMOL/L (24-32); eCRCL 16 ML/MIN; eGFR 21 ML/MIN
[2025-01-23] MEDS ORDERED: non-formulary drug (Metoprolol Succinate 1 TAB) PO SCH (08:00)
[2025-01-23] MEDS ORDERED: potassium Cl 40MEQ/1/2NS 520ml 520 ML IV PRN (09:25)
[2025-01-23] MEDS ORDERED: magnesium sulf-water 2g/50mL 50 ML IV PRN (09:25)
[2025-01-23] MEDS ORDERED: potassium Cl 20 mEq SR tablet PO PRN ×2 (09:25)
[2025-01-23] MEDS ORDERED: magnesium sulf-water 4G/100mL 100 ML IV PRN (09:25)
[2025-01-23] MEDS: magnesium Cl slow-release 64mg tablet PO PRN (11:00)
--- NOTE | 2025-01-23 13:20 | PROGRESS NOTE ---
Daily Progress Note Providers to CC ~ Antibiotic Timeout Antibiotic Ordered?: Yes Subjective No new complaints. Patient is resting comfortably. Daughter at bedside, reports that patient was earlier sitting on a bedside chair. Objective Vital Signs Date Time Temp Pulse Resp B/P (MAP) Pulse Ox O2 Delivery O2 Flow Rate FiO2 01/23/25 10:41 97.3 72 17 124/83 (97) 97 Room Air 01/22/25 10:50 2.0 Result Diagram: 01/23/2562401/23/25 06 Awake cooperative in no acute distress HEENT normocephalic atraumatic extraocular movements are intact Neck supple, no JVD Chest: Clear to auscultation, no wheezes crackles rhonchi Heart: Regular rate rhythm, no murmur or gallop rub Abdomen is soft,, no organomegaly , appears tender however patient's states that she does not have pain but pressure Extremities no cyanosis clubbing or edema Neuro exam is nonfocal. Rectal tube noted with liquid green stool. Other Results Medications reviewed Problem\Assessment\Plan 84 years old female with a history of AFib and CHF, presented to the ER for evaluation of altered mental status. # E coli sepsis: Continue supportive care # UTI: Continue IV antibiotics . Urine cultures positive for E coli. #Huber/CKD: Continue IV fluids. Monitor I's and o's. Request Nephrology consultation. 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 # diarrhea: Continue Rocephin and Flagyl.DC rectal tube # Systolic CHF with out exacerbation : Lasix is on hold due to Huber/CKD. Await Nephrology recommendations. # bilateral perihilar airspace opacities:? Pneumonia. Patient is on antibiotics as noted above. # hyponatremia: Monitor daily BMP. # hypothyroidism: TSH is 20.43. Patient is on levothyroxine 88 mcg daily which will be increased to 100 mcg. Continue monitor. # code status: DNR. Date of Service: Jan 23, 2025 Billing Provider: BATOOL GORE MD Common Visit Codes: [id number] INP/OBS CARE(HIGH) BATOOL GORE MD Jan 23, 2025 13:20
[2025-01-23 14:23] LABS: LEUKOCYTE ESTERASE ,URINE SMALL (Neg); NITRITES, URINE NEGATIVE (Neg); OCCULT BLOOD,URINE MODERATE (Neg)
[2025-01-23 14:45] LABS: UA COLLECTION TYPE FOLEY CATH
[2025-01-23 14:47] LABS: SQUAMOUS EPITHELIAL CELL,UR FEW /LPF (FEW)
[2025-01-23 14:49] LABS: HYALINE CASTS 0-3 /LPF (NEGATIVE)
[2025-01-23 15:22] LABS: CREATININE,URINE RANDOM 51.0 MG/DL; UA UREA RANDOM 555.0 MG/DL
--- NOTE | 2025-01-23 18:05 | PROGRESS NOTE ---
Progress Note Dictate Providers to CC ~ Progress Note: This is an 84-year-old female with a history of atrial fibrillation, chronic systolic heart failure (EF 25-30%), and multiple comorbidities, presenting with acute altered mental status in the context of poor oral intake, functional decline, and recent bedbound status. She was found to have metabolic encephalopathy, acute kidney injury (JUAN CARLOS) on chronic kidney disease, urinary tract infection (UTI), and evidence of volume overload with pulmonary congestion. Her labs reveal leukocytosis, worsening renal function, hyponatremia, metabolic acidosis, hypoalbuminemia, hypocalcemia, and hypomagnesemia. Imaging shows chronic cardiac and renal changes, with new left collecting system dilatation but no obstruction, and a significant post-void residual requiring Reyes catheterization. Her medication regimen includes agents with potential nephrotoxicity and risk for electrolyte disturbances. She is at high risk for delirium, decompensated heart failure, and further renal deterioration, compounded by her advanced age, frailty, and social isolation. Antibiotic Ordered?: N/A Subjective Subjective No specific complaints today Objective Vitals Vital Signs Date Time Temp Pulse Resp B/P (MAP) Pulse Ox O2 Delivery O2 Flow Rate FiO2 01/23/25 15:00 97.2 72 16 131/83 (99) 94 Room Air 01/22/25 10:50 2.0 Appears comfortable RRR w/o murmur CTAB +BS, NT No edema Lab Results: 01/23/25 0625 01/23/25 0625 Other Results I & O 01/23/25 07:00 Intake Total 2350 ml Output Total 3170 ml Balance -820 ml Intake Oral 1150 ml IV Total 600 ml Other 600 ml Output Urine Total 2650 ml Stool Total 520 ml Problem\Assessment\Plan Additional Plan (1) Electrolyte abnormality Assessment & Plan: Electrolyte Abnormalities Assessment: Hyponatremia, hypocalcemia, hypomagnesemia, metabolic acidosis. Plan: Correct electrolytes as indicated: replace magnesium and calcium, monitor sodium correction rate. Monitor for symptoms of severe electrolyte disturbances (seizures, arrhythmias). Address underlying causes (renal dysfunction, medications, poor intake). 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 Plan: Consult nutrition for assessment and recommendations. Encourage oral intake as tolerated; consider supplements. Monitor for refeeding syndrome if nutritional status improves rapidly. Functional Decline / Fall Risk / Social Isolation Assessment: Bedbound, acute functional decline, lives alone, high risk for falls and further deconditioning. Plan: Physical and occupational therapy consults for mobility and safety assessment. Social work/case management for discharge planning and possible increased support at home or consideration of higher level of care. Fall precautions in hospital. (3) Metabolic encephalopathy Assessment & Plan: Metabolic Encephalopathy / Delirium improved Assessment: Acute mental status change likely multifactorial: infection (UTI), metabolic derangements (uremia, hyponatremia, hypovolemia), medication effects, and possible alcohol withdrawal. Plan: Treat underlying causes: continue antibiotics for UTI, correct metabolic/electrolyte abnormalities. Monitor mental status closely; implement delirium precautions (reorienting, minimize restraints, optimize sleep/wake cycle). Review and minimize PETROGRAPHER-active medications (hydrocodone/acetaminophen). Assess for alcohol withdrawal; consider CIWA protocol if indicated. (4) UTI (urinary tract infection) Assessment & Plan: Urinary Tract Infection Assessment: UTI with leukocytosis, likely contributing to delirium and JUAN CARLOS. Plan: Continue/adjust empiric antibiotics per culture and sensitivity. Monitor for sepsis; trend WBC, vitals, and clinical status. Reyes catheter in place for retention; reassess need daily and remove as soon as feasible. (5) JUAN CARLOS (acute kidney injury) Assessment & Plan: Acute Kidney Injury on Chronic Kidney Disease improving Assessment: JUAN CARLOS (creatinine 2.82 now 2.51, BUN rising) on baseline CKD, likely multifactorial: pre-renal (dehydration, poor intake), infection, possible nephrotoxic medications, and urinary retention. Plan: Optimize volume status: cautious diuresis today Furosemide 40 mg IV. Hold/adjust nephrotoxic medications (spironolactone, Jardiance, and possibly Entresto if hypotensive or hyperkalemic). Monitor renal function and electrolytes daily. Address urinary retention; monitor Reyes output and consider urology consult for collecting system dilatation. Urinary Retention / Reyes Catheter Assessment: Significant post-void residual (567 mL), Reyes catheter placed, left collecting system dilatation without obstruction. Plan: Monitor Reyes output and urine characteristics. Reassess need for catheter daily; remove as soon as possible to reduce infection risk. Consider urology consult for persistent retention or abnormal imaging findings. CHELO POLANCO III DO Jan 23, 2025 18:05
[2025-01-23] MEDS: K and/or MAG REPLACEMENT MC SCH (20:00)
[2025-01-24] VITALS (9 sets, daily range): BP systolic 92–131; BP diastolic 65–94; PULSE 70–97; RESP 16–20; TEMP 97.1–97.8; O2SAT 96–99
[2025-01-24 08:18] LABS: MEAN PLATELET VOLUME 9.4 FL (7.4-10.4); RED CELL DISTRIBUTION WIDTH 16.0 % (11.5-14.5)
[2025-01-24 08:29] LABS: CREATININE 1.86 MG/DL (0.40-0.90); TOTAL CARBON DIOXIDE 21.2 MMOL/L (24-32); eCRCL 18 ML/MIN; eGFR 26 ML/MIN
--- NOTE | 2025-01-24 14:04 | DISCHARGE SUMMARY ---
Discharge Summary Providers to CC ~ Discharge Summary Admission Diagnosis: Metabolic encephalopathy, UTI Hospital Course DATE OF ADMISSION: DATE OF DISCHARGE: Discharge Diagnosis\Comment: EColi sepsis Complications: None Condition on DC: Stable for transfer *Problems/Diagnosis: (1) Electrolyte abnormality (2) Frailty syndrome in geriatric patient (3) Metabolic encephalopathy Status: Acute (4) UTI (urinary tract infection) Status: Acute (5) JUAN CARLOS (acute kidney injury) BATOOL GORE MD Jan 24, 2025 14:04
--- NOTE | 2025-01-24 16:59 | PROGRESS NOTE ---
Daily Progress Note Providers to CC ~ Antibiotic Timeout Antibiotic Ordered?: Yes Subjective Patient is aware awake lethargic. RN reports low blood sugars. Daughter at bedside reports patient does not eat much. Objective Vital Signs Date Time Temp Pulse Resp B/P (MAP) Pulse Ox O2 Delivery O2 Flow Rate FiO2 01/24/25 08:11 70 01/24/25 08:00 16 99 Room Air 01/24/25 02:00 97.8 131/94 (106) 01/22/25 10:50 2.0 Result Diagram: 01/24/25 0801 01/24/25 08 Lethargic weak frail looking female, opens eyes to her name. HEENT normocephalic atraumatic extraocular movements are intact Neck supple, no JVD Chest: Clear to auscultation, no wheezes crackles rhonchi Heart: Regular rate rhythm, no murmur or gallop rub Abdomen is soft, nontender, no organomegaly Extremities no cyanosis clubbing or edema Neuro exam is nonfocal. Rectal tube noted previously noted has been removed. Other Results Medications reviewed Problem\Assessment\Plan 84 years old female with a history of AFib and CHF, presented to the ER for evaluation of altered mental status. # E coli sepsis: Continue supportive care # UTI: Continue IV antibiotics . Urine cultures positive for E coli. # hypoglycemia: Due to poor p.o. intake. Discussed with daughter regarding various forms of nutrition. Daughter wants to watch patient N/C how much she takes at night. We will request ST evaluation. #Huber/CKD: Continue IV fluids. Monitor I's and o's. Request Nephrology consultation. 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 # diarrhea: Continue Rocephin and Flagyl.DC rectal tube # Systolic CHF with out exacerbation : Lasix is on hold due to Huber/CKD. Await Nephrology recommendations. # bilateral perihilar airspace opacities:? Pneumonia. Patient is on antibiotics as noted above. # hyponatremia: Monitor daily BMP. # hypothyroidism: Continue Synthroid. # code status: DNR. Date of Service: Jan 24, 2025 Billing Provider: BATOOL GORE MD Common Visit Codes: [id number] INP/OBS CARE(HIGH) BATOOL GORE MD Jan 24, 2025 16:59
[2025-01-24] MEDS: DEXTROSE 15 GM of carb/4 tabs (each vial/BOTTLE has 4 tablets) PO PRN (18:01)
[2025-01-24] MEDS: nystatin 500,000 unit/5ML UD oral suspension PO SCH (20:46)
[2025-01-25 02:00] VITALS: BP 122/71; PULSE 68; RESP 16; TEMP 97.1; O2SAT 93
[2025-01-25 06:00] VITALS: BP 120/81; PULSE 73; RESP 21; TEMP 97.3; O2SAT 97
[2025-01-25] MEDS: levoTHYROXINE 100mcg tablet PO SCH (07:12)
[2025-01-25 07:23] LABS: MEAN PLATELET VOLUME 9.2 FL (7.4-10.4); RED CELL DISTRIBUTION WIDTH 15.8 % (11.5-14.5)
[2025-01-25 07:57] LABS: CREATININE 1.58 MG/DL (0.40-0.90); TOTAL CARBON DIOXIDE 17.7 MMOL/L (24-32); eCRCL 22 ML/MIN; eGFR 31 ML/MIN
[2025-01-25 08:00] VITALS: RESP 16; O2SAT 97
[2025-01-25] MEDS ORDERED: POTASSIUM CHLORIDE 20 MEQ/15 ML oral solution PO PRN (09:02)
[2025-01-25] MEDS: POTASSIUM CHLORIDE 20 MEQ/15 ML oral solution PO SCH (10:01)
[2025-01-25 10:05] LABS: ABG BASE EXCESS -6.6 mmol/L (-2.0-3.0); ABG HCO3 15.9 mmol/L (21.0-28.0); ABG OXYGEN SATURATION 98.2 % (94.0-98.0); ABG PCO2 (T) 24.8 mmHg (32.0-45.0); ABG PH (T) 7.426 (7.350-7.450); ABG PO2 (T) 96.5 mmHg (83.0-108.0); ALLEN'S TEST POSITIVE; FCOHb 1.5 % (0.5-1.5); FHHb 1.8 % (0.0-5.0); FIO2 21.0 mmHg/%; FMetHb 0.3 % (0.0-1.5); FO2Hb 96.4 % (94.0-98.0); MODE ROOM AIR; PATIENT TEMPERATURE 37.0; TOTAL HEMOGLOBIN 13.6 G/dl (12.0-16.0)
[2025-01-25 11:00] VITALS: BP 118/84; PULSE 60; RESP 16; TEMP 97.1; O2SAT 97
[2025-01-25 15:00] VITALS: BP 123/87; PULSE 70; RESP 28; TEMP 97.4; O2SAT 91
--- NOTE | 2025-01-25 18:00 | RADIOLOGY REPORT ---
CHEST RADIOGRAPH Indication: COUGH Technique: Single frontal view of the chest was obtained COMPARISON: DI CHEST,SINGLE VIEW on DOS: 01/19/25, DI CHEST,SINGLE VIEW on DOS: 03/28/23, CHEST,SINGLE VIEW on DOS: 07/13/22, CHEST,SINGLE VIEW on DOS: 06/06/22, CHEST,SINGLE VIEW on DOS: 10/30/18 FINDINGS: Lines and Tubes: None Lungs: Clear Pleura: No effusion. No pneumothorax. Cardiomediastinal contours: Heart size is normal. Calcifications in the aortic arch. Bones: Unremarkable IMPRESSION: No acute disease.
--- NOTE | 2025-01-25 22:47 | PROGRESS NOTE ---
Progress Note Dictate Providers to CC ~ Progress Note: This is an 84-year-old female with a history of atrial fibrillation, chronic systolic heart failure (EF 25-30%), and multiple comorbidities, presenting with acute altered mental status in the context of poor oral intake, functional decline, and recent bedbound status. She was found to have metabolic encephalopathy, acute kidney injury (JUAN CARLOS) on chronic kidney disease, urinary tract infection (UTI), and evidence of volume overload with pulmonary congestion. Her labs reveal leukocytosis, worsening renal function, hyponatremia, metabolic acidosis, hypoalbuminemia, hypocalcemia, and hypomagnesemia. Imaging shows chronic cardiac and renal changes, with new left collecting system dilatation but no obstruction, and a significant post-void residual requiring Reyes catheterization. Her medication regimen includes agents with potential nephrotoxicity and risk for electrolyte disturbances. She is at high risk for delirium, decompensated heart failure, and further renal deterioration, compounded by her advanced age, frailty, and social isolation. Antibiotic Ordered?: N/A Subjective Subjective Resting comfortably in bed when I arrived, somewhat somnolent but arousable talking to me, family not present Objective Vitals Vital Signs Date Time Temp Pulse Resp B/P (MAP) Pulse Ox O2 Delivery O2 Flow Rate FiO2 01/25/25 18:30 127 01/25/25 15:00 97.4 28 123/87 (99) 91 Room Air 01/22/25 10:50 2.0 Somnolent but arousable, appears comfortable Rate and rhythm without murmur Clear to auscultation bilaterally Positive bowel sounds, nontender Lab Results: 01/25/25 0700 01/25/25 1742 Problem\Assessment\Plan Problems/Diagnosis: (1) Electrolyte abnormality Assessment & Plan: Electrolyte Abnormalities Assessment: Hyponatremia, hypocalcemia, hypomagnesemia, metabolic acidosis. Plan: Correct electrolytes as indicated: replace magnesium and calcium, monitor sodium correction rate. Monitor for symptoms of severe electrolyte disturbances (seizures, arrhythmias). Address underlying causes (renal dysfunction, medications, poor intake). 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 Plan: Consult nutrition for assessment and recommendations. Encourage oral intake as tolerated; consider supplements. Monitor for refeeding syndrome if nutritional status improves rapidly. Functional Decline / Fall Risk / Social Isolation Assessment: Bedbound, acute functional decline, lives alone, high risk for falls and further deconditioning. Plan: Physical and occupational therapy consults for mobility and safety assessment. Social work/case management for discharge planning and possible increased support at home or consideration of higher level of care. Fall precautions in hospital. (3) Metabolic encephalopathy Assessment & Plan: Metabolic Encephalopathy / Delirium improved Assessment: Acute mental status change likely multifactorial: infection (UTI), metabolic derangements (uremia, hyponatremia, hypovolemia), medication effects, and possible alcohol withdrawal. Plan: Treat underlying causes: continue antibiotics for UTI, correct metabolic/electrolyte abnormalities. Monitor mental status closely; implement delirium precautions (reorienting, minimize restraints, optimize sleep/wake cycle). Review and minimize CIVIL ENGINEER-active medications (hydrocodone/acetaminophen). Assess for alcohol withdrawal; consider CIWA protocol if indicated. (4) UTI (urinary tract infection) Assessment & Plan: Urinary Tract Infection Assessment: UTI with leukocytosis, likely contributing to delirium and JUAN CARLOS. Plan: Continue/adjust empiric antibiotics per culture and sensitivity. Monitor for sepsis; trend WBC, vitals, and clinical status. Reyes catheter in place for retention; reassess need daily and remove as soon as feasible. (5) JUAN CARLOS (acute kidney injury) Assessment & Plan: Acute Kidney Injury on Chronic Kidney Disease improving Assessment: JUAN CARLOS (creatinine 2.82 now 1.58, BUN improving) on baseline CKD, likely multifactorial: pre-renal (dehydration, poor intake), infection, possible nephrotoxic medications, and urinary retention. Plan: Optimize volume status: cautious diuresis today Furosemide 40 mg IV. Hold/adjust nephrotoxic medications (spironolactone, Jardiance, and possibly Entresto if hypotensive or hyperkalemic). Monitor renal function and electrolytes daily. Address urinary retention; monitor Reyes output and consider urology consult for collecting system dilatation. Urinary Retention / Reyes Catheter Assessment: Significant post-void residual (567 mL), Reyes catheter placed, left collecting system dilatation without obstruction. Plan: Monitor Reyes output and urine characteristics. Reassess need for catheter daily; remove as soon as possible to reduce infection risk. Consider urology consult for persistent retention or abnormal imaging findings. Acute Kidney Injury on Chronic Kidney Disease improving Assessment: JUAN CARLOS (creatinine 2.82 now 2.51, BUN rising) on baseline CKD, likely multifactorial: pre-renal (dehydration, poor intake), infection, possible nephrotoxic medications, and urinary retention. Plan: Optimize volume status: cautious diuresis today Furosemide 40 mg IV. Hold/adjust nephrotoxic medications (spironolactone, Jardiance, and possibly Entresto if hypotensive or hyperkalemic). Monitor renal function and electrolytes daily. Address urinary retention; monitor Reyes output and consider urology consult for collecting system dilatation. Urinary Retention / Reyes Catheter Assessment: Significant post-void residual (567 mL), Reyes catheter placed, left collecting system dilatation without obstruction. Plan: Monitor Reyes output and urine characteristics. Reassess need for catheter daily; remove as soon as possible to reduce infection risk. Consider urology consult for persistent retention or abnormal imaging findings. CHELO POLANCO III DO Jan 25, 2025 22:47
[2025-01-26] VITALS (8 sets, daily range): BP systolic 109–135; BP diastolic 70–100; PULSE 62–106; RESP 12–22; TEMP 96.9–98; O2SAT 92–96
[2025-01-26] MEDS: POTASSIUM CHLORIDE 20 MEQ/15 ML oral solution PO PRN (03:21)
[2025-01-26 07:35] LABS: MEAN PLATELET VOLUME 9.2 FL (7.4-10.4); RED CELL DISTRIBUTION WIDTH 16.1 % (11.5-14.5)
[2025-01-26 07:46] LABS: CREATININE 1.42 MG/DL (0.40-0.90); TOTAL CARBON DIOXIDE 18.1 MMOL/L (24-32); eCRCL 24 ML/MIN; eGFR 35 ML/MIN
--- NOTE | 2025-01-26 11:42 | RADIOLOGY REPORT ---
X-ray right shoulder Technique AP and lateral views REASON FOR EXAM: Right shoulder/arm pain INDICATION: Right shoulder/arm pain FINDINGS: Anterior dislocation of the humeral head. No fractures are identified IMPRESSION: 1. Anterior dislocation right shoulder joint
--- NOTE | 2025-01-26 12:57 | PROGRESS NOTE ---
Daily Progress Note Providers to CC ~ Antibiotic Timeout Antibiotic Ordered?: Yes Subjective Patient has no new complaints. RN at bedside wondering if we are getting accurate readings for blood sugar because her fingers are blue. Objective Vital Signs Date Time Temp Pulse Resp B/P (MAP) Pulse Ox O2 Delivery O2 Flow Rate FiO2 01/26/25 11:00 96.9 98 12 120/83 (95) 94 Nasal Cannula 3.0 Result Diagram: 01/26/25 0701/26/25 07 Patient is more awake today, alert, complaining of right shoulder pain. HEENT normocephalic atraumatic extraocular movements are intact Neck supple, no JVD Chest: Clear to auscultation, no wheezes crackles rhonchi Heart: Regular rate rhythm, no murmur or gallop rub Abdomen is soft, nontender, no organomegaly Extremities no cyanosis clubbing or edema Neuro exam is nonfocal. Rectal tube noted previously noted has been removed. Musculoskeletal: Pain on movement of the right shoulder. Other Results Medications reviewed Problem\Assessment\Plan 84 years old female with a history of AFib and CHF, presented to the ER for evaluation of altered mental status. # right shoulder pain: Check x-ray of the right shoulder. # bluish discoloration of the fingertips: Good radial pulses palpated. We will check Doppler ultrasound. # hypoglycemia: Due to poor p.o. intake. Continue D5 NS. # E coli sepsis: Continue supportive care # UTI: Continue IV antibiotics . Urine cultures positive for E coli. # hypoglycemia: Due to poor p.o. intake. Discussed with daughter regarding various forms of nutrition. Daughter wants to watch patient N/C how much she takes at night. We will request ST evaluation. #Huber/CKD: Continue IV fluids. Monitor I's and o's. Request Nephrology consultation. 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 # diarrhea: Resolved. Continue Rocephin and Flagyl. Rectal tube has been discontinued. # Systolic CHF with out exacerbation : Lasix is on hold due to Huber/CKD. Await Nephrology recommendations. # bilateral perihilar airspace opacities:? Pneumonia. Patient is on antibiotics as noted above. # hyponatremia: Monitor daily BMP. # hypothyroidism: Continue Synthroid. # code status: DNR. Other: I discussed with patient's daughter Flora who is her power of [employer] member who will be in on Tuesday to discuss further goals of care. Date of Service: Jan 26, 2025 Billing Provider: BATOOL GORE MD Common Visit Codes: [id number] INP/OBS CARE(HIGH) BATOOL GORE MD Jan 26, 2025 12:57
--- NOTE | 2025-01-26 18:39 | CONSULTATION REPORT ---
History of Present Illness Providers to CC ~ Reason for Admit\Admit Dx: right shoulder dislocation Refering MD: Dr Mcintyre History of Present Illness 84 yr old woman in poor health admitted several days ago, today was lucid enough to complain about right shoulder pain, xrays showed a dislocation. she is a poor historian. Her daughter at bedside revealed the shoulder has been dislocated since last spring Allergies: Coded Allergies: No Known Allergies (Unverified , 07/13/22) Home Medications Home Medications Active Reported SODIUM CHLORIDE tablet (Sodium Chloride) 1,000 Mg Tablet 1 Tab PO QID 30 Days K-Dur* (Potassium Chloride) 20 Meq Tab.prt.sr 1 Tab PO DAILY 30 Days Lasix* (Furosemide) 20 Mg Tablet 1 Tab PO BID Synthroid* (Levothyroxine Sodium) 88 Mcg Tablet 1 Tab PO DAILY 30 Days Spironolactone 25 Mg Tablet 25 Mg PO DAILY Entresto 24 mg-26 mg Tablet (Sacubitril/Valsartan) 1 Each Tablet 1 Tab PO BID Eliquis (Apixaban) 2.5 Mg Tablet 1 Tab PO Q12H 30 Days Dorzolamide-Timolol Eye Drops (Dorzolamide HCl/Timolol Maleat) 10 Ml Drops 1 Drop EACHEYE BID Metoprolol Succinate 50 Mg Tab.sr.24h 1 Tab PO DAILY Past Family History Family History: CVA MOTHER, Onset:60 years & older FH: cardiovascular disease GRANDFATHER OR GRANDMOTHER, Onset:60 years & older Physical Exam Last Vital Signs Recorded: Temperature: 97.6, Source: Oral, Heart Rate: 88, Respiratory Rate: 22, BP: 109/70, Pulse Oximetry: 92, Weight: 53.100 General Appearance: alert, no apparent distress Extremities kees right arm at her side, cannot lift it, nontender at the shoulder,elbow forearm hand exam normal Results Results/Orders Results/Orders anteroinferior glenohumeral dislocation of the right shoulder Diagram Lab Result Diagram: 01/26/25 0712 01/26/25 1221 Assessment/Plan Problems/Diagnosis: (1) Shoulder dislocation Additional Plan Attempted reduction of this is impossible, and the only option would be replacement, but based on her medical condition she is not a candidate for that. Recommend comfort care as she has been doing. Thank you. Problem Qualifiers (1) Shoulder dislocation: Qualified Codes: S43.004A - Unspecified dislocation of right shoulder joint, initial encounter KATY TRISTAN Jr., MD Jan 26, 2025 18:39
[2025-01-26] MEDS ORDERED: HYDROcodone/acetaminophen 5mg/325mg tablet PO PRN (19:05)
--- NOTE | 2025-01-26 19:05 | PROGRESS NOTE ---
Progress Note Dictate Providers to CC ~ Progress Note: This is an 84-year-old female with a history of atrial fibrillation, chronic systolic heart failure (EF 25-30%), and multiple comorbidities, presenting with acute altered mental status in the context of poor oral intake, functional decline, and recent bedbound status. She was found to have metabolic encephalopathy, acute kidney injury (JUAN CARLOS) on chronic kidney disease, urinary tract infection (UTI), and evidence of volume overload with pulmonary congestion. Her labs reveal leukocytosis, worsening renal function, hyponatremia, metabolic acidosis, hypoalbuminemia, hypocalcemia, and hypomagnesemia. Imaging shows chronic cardiac and renal changes, with new left collecting system dilatation but no obstruction, and a significant post-void residual requiring Reyes catheterization. Her medication regimen includes agents with potential nephrotoxicity and risk for electrolyte disturbances. She is at high risk for delirium, decompensated heart failure, and further renal deterioration, compounded by her advanced age, frailty, and social isolation. Antibiotic Ordered?: N/A Subjective Subjective Doing well today, renal function better each day Objective Vitals Vital Signs Date Time Temp Pulse Resp B/P (MAP) Pulse Ox O2 Delivery O2 Flow Rate FiO2 01/26/25 15:00 97.6 88 22 109/70 (83) 92 Nasal Cannula 3.0 Sleeping, but arousable RRR w/o murmur CTAB +BS, NT No edema Lab Results: 01/26/25 0712 01/26/25 1221 Other Results I & O 01/26/25 07:00 Intake Total 2500 ml Output Total 900 ml Balance 1600 ml Intake Oral 1850 ml IV Total 650 ml Output Urine Total 900 ml # Bowel Movements 2 Problem\Assessment\Plan Problems/Diagnosis: (1) Electrolyte abnormality Assessment & Plan: Electrolyte Abnormalities improved Assessment: Hyponatremia, hypocalcemia, hypomagnesemia, metabolic acidosis. Plan: Correct electrolytes as indicated: replace magnesium and calcium, monitor sodium correction rate. Monitor for symptoms of severe electrolyte disturbances (seizures, arrhythmias). Address underlying causes (renal dysfunction, medications, poor intake). 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 Plan: Consult nutrition for assessment and recommendations. Encourage oral intake as tolerated; consider supplements. Monitor for refeeding syndrome if nutritional status improves rapidly. Functional Decline / Fall Risk / Social Isolation Assessment: Bedbound, acute functional decline, lives alone, high risk for falls and further deconditioning. Plan: Physical and occupational therapy consults for mobility and safety assessment. Social work/case management for discharge planning and possible increased support at home or consideration of higher level of care. Fall precautions in hospital. (3) Metabolic encephalopathy Assessment & Plan: Metabolic Encephalopathy / Delirium improved Assessment: Acute mental status change likely multifactorial: infection (UTI), metabolic derangements (uremia, hyponatremia, hypovolemia), medication effects, and possible alcohol withdrawal. Plan: Treat underlying causes: continue antibiotics for UTI, correct metabolic/electrolyte abnormalities. Monitor mental status closely; implement delirium precautions (reorienting, minimize restraints, optimize sleep/wake cycle). Review and minimize COM[employer] WORKER-active medications (hydrocodone/acetaminophen). Assess for alcohol withdrawal; consider CIWA protocol if indicated. (4) UTI (urinary tract infection) Assessment & Plan: Urinary Tract Infection improved Assessment: UTI with leukocytosis, likely contributing to delirium and JUAN CARLOS. Plan: Continue/adjust empiric antibiotics per culture and sensitivity. Monitor for sepsis; trend WBC, vitals, and clinical status. Reyes catheter in place for retention; reassess need daily and remove as soon as feasible. (5) JUAN CARLOS (acute kidney injury) Assessment & Plan: Acute Kidney Injury on Chronic Kidney Disease improving Assessment: JUAN CARLOS (creatinine 2.82 now 1.58, BUN improving) on baseline CKD, likely multifactorial: pre-renal (dehydration, poor intake), infection, possible nephrotoxic medications, and urinary retention. Plan: Optimize volume status: Hold/adjust nephrotoxic medications (spironolactone, Jardiance, and possibly Entresto if hypotensive or hyperkalemic). Monitor renal function and electrolytes daily. Address urinary retention; monitor Reyes output and consider urology consult for collecting system dilatation. Urinary Retention / Reyes Catheter Assessment: Significant post-void residual (567 mL), Reyes catheter placed, left collecting system dilatation without obstruction. Plan: Monitor Reyes output and urine characteristics. Reassess need for catheter daily; remove as soon as possible to reduce infection risk. Consider urology consult for persistent retention or abnormal imaging findings. Acute Kidney Injury on Chronic Kidney Disease improving Assessment: JUAN CARLOS (creatinine 2.82 now 1.42) on baseline CKD, likely multifactorial: pre-renal (dehydration, poor intake), infection, possible nephrotoxic medications, and urinary retention. Plan: Optimize volume status: Try to match intake with output as close as possible with isotonic fluids. Hold/adjust nephrotoxic medications (spironolactone, Jardiance, and possibly Entresto if hypotensive or hyperkalemic). Monitor renal function and electrolytes daily. Address urinary retention; monitor Reyes output and consider urology consult for collecting system dilatation. Urinary Retention / Reyes Catheter Assessment: Significant post-void residual (567 mL), Reyes catheter placed, left collecting system dilatation without obstruction. Plan: Monitor Reyes output and urine characteristics. Reassess need for catheter daily; remove as soon as possible to reduce infection risk. Consider urology consult for persistent retention or abnormal imaging findings. Additional Plan She is doing well, at or near her baseline renal function now, we will sign off today. CHELO POLANCO III DO Jan 26, 2025 19:05
[2025-01-27] VITALS (8 sets, daily range): BP systolic 97–140; BP diastolic 49–95; PULSE 67–95; RESP 12–23; TEMP 97.2–98.4; O2SAT 93–96
[2025-01-27 07:28] LABS: CREATININE 1.32 MG/DL (0.40-0.90); TOTAL CARBON DIOXIDE 19.8 MMOL/L (24-32); eCRCL 26 ML/MIN; eGFR 38 ML/MIN
--- NOTE | 2025-01-27 11:38 | VASCULAR REPORT ---
VASC VL VENOUS HISTORY: pain COMPARISON: None TECHNIQUE: Duplex doppler evaluation of the deep venous system of the lower neck and proximal upper extremity(ies), including color doppler and spectral/pulsed waveform analysis was performed. FINDINGS: Right:- Subclavian vein: Visible portion is patent - Axillary vein: Visible portion is patent - Other: Nothing Left: - Internal jugular vein: Compressible - Subclavian vein: Visible portion is patent - Axillary vein: Visible portion is patent IMPRESSION: No right or left upper extremity deep venous thrombosis of the visualized veins.
[2025-01-27] MEDS ORDERED: HYDROcodone/acetaminophen 10/325mg tab PO PRN (14:35)
[2025-01-27] MEDS: normal saline 1000ml 1,000 ML IV SCH (16:20)
--- NOTE | 2025-01-27 19:00 | VASCULAR REPORT ---
CLINICAL HISTORY: Pain in fingers. TECHNIQUE: Bilateral upper extremity extremity arterial duplex exam was performed. Grayscale, color Doppler, and spectral waveform analysis was performed. COMPARISON: None FINDINGS: Right Lower Extremity: Limited examination due to patient unable to reposition arms. Scattered atherosclerotic plaque. No focal stenosis or occlusion visualized. Multiphasic waveforms throughout the subclavian, axillary, and brachial arteries. Radial and ulnar arteries were not able to be evaluated. Right subclavian artery peak systolic velocities measure 79 cm/sec proximally, 56 cm/sec at its midportion, and 45 cm/sec distally. Axillary artery measures 29 cm/sec in its midportion, and brachial artery measures 50 cm/sec at its midportion. Left Lower Extremity: Limited examination due to patient unable to reposition arms. Scattered atherosclerotic plaque. No focal stenosis or occlusion visualized. Multiphasic waveforms throughout the subclavian, axillary, and brachial arteries. Radial and ulnar arteries were not able to be evaluated. Left subclavian artery measures 80 cm/sec at its proximal aspect, 42 cm/sec at its midportion, and 41 cm/sec distally. Left axillary artery measured 33 cm/sec at its midportion. Left brachial artery measured 45 cm/sec proximally and 55 cm/sec at its midportion. IMPRESSION: 1. Limited examination due to the patient unable to reposition arms for the examination. 2. Multiphasic waveforms are seen throughout the bilateral subclavian, axillary, and brachial arteries. No visualized evidence for occlusion or significant stenosis demonstrated in the visualized arteries on this exam.
--- NOTE | 2025-01-27 19:45 | PROGRESS NOTE ---
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 Objective Vital Signs Date Time Temp Pulse Resp B/P (MAP) Pulse Ox O2 Delivery O2 Flow Rate FiO2 01/27/25 15:00 97.6 88 23 108/49 (68) 93 Nasal Cannula 2.0 Result Diagram: 01/26/25 0712 01/27/25 1328 Gen. No acute distress alert Lungs clear to ascultation bilaterally, no wheezes rales or rhonchi appreciated Heart normal sinus rhythm no murmurs rubs or clicks noted Abdomen soft nontender bowel sounds are normoactive Lower extremities no clubbing cyanosis, nor edema appreciated bilaterally Problem\Assessment\Plan 84 years old female with a history of AFib and CHF, presented to the ER for evaluation of altered mental status. # right shoulder dislocation- status post evaluation with orthopedic surgeon Dr. Powers who recommended the patient would not tolerate an attempted reduction. # bluish discoloration of the fingertips: Good radial pulses palpated. Improving arterial ultrasound was negative for significant stenosis # hypoglycemia: Due to poor p.o. intake. Continue D5 NS. # E coli sepsis: Completed a course of IV Rocephin and IV metronidazole # UTI: Completed a course of IV Rocephin IV metronidazole. Urine cultures positive for E coli. # hypoglycemia: Due to poor p.o. intake. Discussed with daughter regarding various forms of nutrition. Daughter wants to watch patient N/C how much she takes at night. We will request ST evaluation. #Huber/CKD: Improving possibly secondary to vasomotor nephropathy Continue IV fluids. Monitor I's and o's. [employer] [facility] Dr. 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 # diarrhea: Resolved. Continue Rocephin and Flagyl. Rectal tube has been discontinued. # Systolic CHF with out exacerbation : Lasix is on hold due to Huber/CKD. No signs of fluid overload # bilateral perihilar airspace opacities:? Pneumonia. Completed eight day course of Rocephin and metronidazole # hyponatremia: Monitor daily BMP. Improving # hypothyroidism: Continue Synthroid. # code status: DNR. Other: I discussed with patient's daughter Flora who is her power of deputy prosecuting attorney who will be in on Tuesday to discuss further goals of care. And possible comfort care Date of Service: Jan 27, 2025 Billing Provider: LUPILLO RAMSEY DO Common Visit Codes: [id number] INP/OBS CARE(HIGH) LUPILLO RAMSEY DO Jan 27, 2025 19:45
[2025-01-27] MEDS: HYDROcodone/acetaminophen 5mg/325mg tablet PO PRN (21:07)
[2025-01-28 02:00] VITALS: BP 95/75; PULSE 64; RESP 13; TEMP 97.5; O2SAT 97
[2025-01-28 06:00] VITALS: BP 109/84; PULSE 81; RESP 14; TEMP 97.3; O2SAT 92
[2025-01-28 07:10] LABS: MEAN PLATELET VOLUME 8.8 FL (7.4-10.4); RED CELL DISTRIBUTION WIDTH 16.1 % (11.5-14.5)
[2025-01-28 07:24] LABS: CREATININE 1.17 MG/DL (0.40-0.90); TOTAL CARBON DIOXIDE 20.7 MMOL/L (24-32); eCRCL 29 ML/MIN; eGFR 44 ML/MIN
[2025-01-28 08:00] VITALS: RESP 20; O2SAT 94
[2025-01-28 11:00] VITALS: BP 107/50; PULSE 65; RESP 17; TEMP 97.4; O2SAT 93
--- NOTE | 2025-01-28 14:23 | DISCHARGE SUMMARY ---
Discharge Summary Providers to CC ~ Discharge Summary Admission Diagnosis: Metabolic encephalopathy, UTI Hospital Course DATE OF ADMISSION: 01/19/2025 DATE OF DISCHARGE: 01/28/2025 Discharge Diagnosis\Comment: E coli sepsis secondary to UTI dislocated shoulder general debility dementia Operations\Procedures: None Consultants: None Complications: None Condition on DC: Stable for transfer Discharge Summary: History of Present Illness Reason for Admit\Complaint: Altered mental status History of Present Illness 84 years old female with a history of AFib and CHF, presented to the ER for evaluation of altered mental status . Patient is unable to provide any information which is provided by her daughter Audrey who is at the bedside. Daughter states she lives close by and got called by nephew that patient was not doing well ,was not eating or drinking and mostly staying in bed. Patient is evaluated in the ER and noted to have multiple abnormalities including a white count of 15.7, BUN and creatinine 27 and 2.82 and a sodium of 129. UA is abnormal suggestive of UTI. Patient has been admitted for metabolic encephalopathy and a UTI. Patient has not had any recent fever chills nausea vomiting abdominal pain chest pain dysuria frequency urgency hematuria melena or bright red blood per rectum. No focal neurological abnormalities are reported. Physical exam patient is alert and oriented x2 in no acute distress lying down comfortably speaking in full sentences daughters at bedside trying to feed her HEENT normocephalic nontraumatic head CVS first and second heart sounds are regular rate rhythm no murmurs gallops or rubs Respiratory system is clear to auscultate bilaterally no rales rhonchi crackles or wheezing Abdomen is soft sounds are positive there is no hepatosplenomegaly no rigidity no rebound Extremities no clubbing cyanosis or edema Hospital course patient is a pleasant 84-year-old female who has mild dementia had worsening over a LOC was pancultured in the ER noted to have E coli sepsis patient was treated with IV Rocephin for seven days her repeat cultures are negative her symptoms are resolved she is being transferred to [facility] daughters at the bedside who I spoke to In answered all her questions to the best of my ability and agrees with the plan of care she says after [facility] is she is going to take the patient home. 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
[2025-01-28 15:00] VITALS: BP 111/69; PULSE 87; RESP 19; TEMP 97.8; O2SAT 93
== END 2025-01-28 19:23 | DRG 871 ==
LOC: ER 12:17 → ED HOLD 17:47 → CICU 2S 21:09 → ORTHO 4S 01-20 13:23 → PCU 3S 01-22 08:45
PROVIDERS: ADMIT Internal Medicine; ATTEND Internal Medicine
PROC: 05HB33Z Insertion of Infusion Device into Right Basilic Vein, Percutaneous Approach (ICD-10-PCS; 2025-01-21)
PROC: B54MZZA Ultrasonography of Right Upper Extremity Veins, Guidance (ICD-10-PCS; 2025-01-21)
PROC: 0RJ Upper Joints, Inspection (ICD-10-PCS; principal; 2025-01-26)
DX: A41.51 Sepsis due to Escherichia coli [E. coli] (principal); G93.41 Metabolic encephalopathy; J15.69 Pneumonia due to other Gram-negative bacteria; J15.9 Unspecified bacterial pneumonia; J96.01 Acute respiratory failure with hypoxia; E46 Unspecified protein-calorie malnutrition; I13.0 Hypertensive heart and chronic kidney disease with heart failure and stage 1 through stage 4 chronic kidney disease, or unspecified chronic kidney disease; I50.22 Chronic systolic (congestive) heart failure; N39.0 Urinary tract infection, site not specified; N17.9 Acute kidney failure, unspecified; Z79.01 Long term (current) use of anticoagulants; N18.9 Chronic kidney disease, unspecified; E03.9 Hypothyroidism, unspecified; E87.1 Hypo-osmolality and hyponatremia; Z66 Do not resuscitate; E78.5 Hyperlipidemia, unspecified; E16.2 Hypoglycemia, unspecified; S43.004A Unspecified dislocation of right shoulder joint, initial encounter; X58.XXXA Exposure to other specified factors, initial encounter; E88.09 Other disorders of plasma-protein metabolism, not elsewhere classified; I48.91 Unspecified atrial fibrillation; E87.6 Hypokalemia; E83.51 Hypocalcemia; E83.42 Hypomagnesemia; E86.0 Dehydration; Z86.73 Personal history of transient ischemic attack (TIA), and cerebral infarction without residual deficits; Z82.49 Family history of ischemic heart disease and other diseases of the circulatory system; Z82.3 Family history of stroke; Z68.20 Body mass index [BMI] 20.0-20.9, adult; Z74.01 Bed confinement status; Z91.81 History of falling; Y93.89 Activity, other specified; Y92.89 Other specified places as the place of occurrence of the external cause
CPT/HCPCS: 36410; 36415; 36600; 71045; 73030; 74150; 76937; 80048; 80053; 80162; 81001; 82570; 82803; 82947; 82948; 83605; 83735; 84300; 84443; 84540; 85007; 85018; 85025; 87040; 87077; 87081; 87088; 87186; 87324; 87449; 92508; 92616; 93005; 93306; 93930; 93970; 96365; 96375; 97110; 97161; 97530; 99285; A4314; A4565; A4620; A5200; A6213; A6250; A6258; C1751; C1758; G0378; J0696; J1160; J1938; J2405; J3480; J3490; J7030; J7040; J7042; J7070